=== PATIENT | male | born 2000 | race Caucasian/White ===

== ENCOUNTER 2020-08-22 18:01 | Emergency (ER) | payer OTHER, SELFPAY ==
--- NOTE | ~2020-08-22 | XR_ITS ---
EXAMINATION: XR FOREARM, LEFT XR WRIST, LEFT CLINICAL INFORMATION: Lifting injury. COMPARISON: None TECHNIQUE: AP and lateral views of the left forearm. AP, oblique, lateral, and scaphoid views of the left wrist. FINDINGS: LEFT FOREARM: No acute fracture or dislocation. No joint space narrowing or marginal osteophytes. No osseous erosion. No abnormal soft tissue calcification. No significant elbow joint effusion. LEFT WRIST: No acute fracture or dislocation. Normal carpal alignment. No joint space narrowing or marginal osteophytes. No osseous erosion. No abnormal soft tissue calcification. XR/XR forearm LT 2V IMPRESSION: LEFT FOREARM: Unremarkable examination. LEFT WRIST: Unremarkable examination.
--- NOTE | ~2020-08-22 | XR_ITS ---
EXAMINATION: XR FOREARM, LEFT XR WRIST, LEFT CLINICAL INFORMATION: Lifting injury. COMPARISON: None TECHNIQUE: AP and lateral views of the left forearm. AP, oblique, lateral, and scaphoid views of the left wrist. FINDINGS: LEFT FOREARM: No acute fracture or dislocation. No joint space narrowing or marginal osteophytes. No osseous erosion. No abnormal soft tissue calcification. No significant elbow joint effusion. LEFT WRIST: No acute fracture or dislocation. Normal carpal alignment. No joint space narrowing or marginal osteophytes. No osseous erosion. No abnormal soft tissue calcification. XR/XR wrist LT min 3V IMPRESSION: LEFT FOREARM: Unremarkable examination. LEFT WRIST: Unremarkable examination.
[2020-08-22 18:06] VITALS: BP 115/61; PULSE 60; RESP 18; TEMP 36.5; O2SAT 99; BMI 23.1
--- NOTE | 2020-08-22 18:58 | ED.EXTPRO ---
HPI - Extremity Problem General Chief complaint: Extremity Injury, Upper Stated complaint: wrist inj at work Source: patient Mode of arrival: ambulatory Limitations: no limitations History of Present Illness HPI Narrative: 20-year-old male with no significant past medical history presents with pain, swelling and redness to his left forearm and wrist after a lifting injury while at work. He states that he was lifting a stove, and his arm bent in an awkward direction. He does not report any other complaints, has full range of motion and strength to the hand. Does not describe any tingling, numbness, loss of sensation, or weakness. MD Complaint: extremity pain Onset (ago): hour(s) (Within the hour of arrival) Pain Consistency: constant Location: left Severity scale (1-10): 8 Quality: aching Relieving factors: nothing Exacerbating factors: range of motion and palpation Associated symptoms: denies other symptoms Related Data Previous Rx's Medication Instructions Recorded ibuprofen 600 mg PO TID PRN #30 tab 08/22/20 Allergies Allergy/AdvReac Type Severity Reaction Status Date / Time No Known Allergies Allergy Verified 08/22/20 18:09 Review of Systems Review of Systems: Constitutional: No Fever, No Chills ENT/Mouth: No Ear Pain, No Hoarseness, No sore throat Eyes: No Eye Pain, No Swelling, No Redness, No Foreign Body Cardiovascular: No Chest Pain, No SOB Respiratory: No Cough, No Dyspnea Gastrointestinal: No Nausea, No Vomiting, No Diarrhea, No abdominal Pain Genitourinary: No Dysuria, No Hematuria Musculoskeletal: positive left forearm pain, No Myalgias, No Joint Swelling Skin: No Skin lacerations, No rash Neuro: No Weakness, No Numbness, No Paresthesias, No Loss of Consciousness, No Dizziness, No Headache Psych: No Anxiety/Panic, No Depression Heme/Lymph: no easy bruising, no Lymphadenopathy Endocrine: No Polyuria, No Polydipsia Yes all other systems are reviewed and are negative [facility] Past Medical History Attestation statement: The following information was validated with the patient. Source: old records reviewed Medical History No known health problems Social History Social History Alcohol intake: never Smoked in Last 30 Days: No Substance Use Type: Marijuana Advance Directives: No Advance Directives Information Provided: Yes Physical Exam Vital Signs: Vital Signs: Last Vital Signs Temp 97.7 F 08/22/20 18:06 Pulse 60 08/22/20 18:06 Resp 18 08/22/20 18:06 BP 115/61 08/22/20 18:06 Pulse Ox 99 08/22/20 18:06 Body Mass Index 23.1 Appearance: Alert. Oriented X3. No acute distress. Eyes: Pupils equal, round and reactive to light. ENT: Pharynx normal. Neck: Normal inspection. Neck supple. CVS: Normal heart rate and rhythm. Pulses normal. Respiratory: No respiratory distress. Breath sounds normal. Abdomen: Soft and nontender. Skin: Skin warm and dry. Normal skin color. Normal skin turgor. Extremities: Full range of motion to all extremities, left upper extremity full range of motion, able to pronate, supinate, flex, extend, abduct and adduct upper extremity without difficulty. No tendon deficit noted to digits, brisk capillary refill and pulses equal to upper extremities. Approximately 4 cm Area of tenderness, redness and swelling on the radial aspect of the distal left forearm. Neuro: No motor deficit. No sensory deficit. Course Course Course Narrative: 20-year-old male with no significant past medical history presents with a left forearm injury while lifting a stove at work. Plan of care is for x-rays and Motrin. X-rays negative for acute findings requiring emergent intervention. Plan of care is to treat with ice, elevation and Motrin. Patient verbalized understanding of and agrees to plan of care discharge home. MDM - Extremity (Nontraumatic) MDM Narrative Medical decision making narrative: Fracture, contusion Medical Records Attestation: I reviewed the patient's medical records. Imaging Data Left wrist and forearm x-ray: Attestation: I personally reviewed and interpreted this imaging study as follows: Radiologist's impression: EXAMINATION: XR FOREARM, LEFT XR WRIST, LEFT CLINICAL INFORMATION: Lifting injury. COMPARISON: None TECHNIQUE: AP and lateral views of the left forearm. AP, oblique, lateral, and scaphoid views of the left wrist. FINDINGS: LEFT FOREARM: No acute fracture or dislocation. No joint space narrowing or marginal osteophytes. No osseous erosion. No abnormal soft tissue calcification. No significant elbow joint effusion. LEFT WRIST: No acute fracture or dislocation. Normal carpal alignment. No joint space narrowing or marginal osteophytes. No osseous erosion. No abnormal soft tissue calcification. XR/XR wrist LT min 3V IMPRESSION: LEFT FOREARM: Unremarkable examination. LEFT WRIST: Unremarkable examination. Discharge Plan Discharge Clinical Impression: Contusion Qualifiers: Encounter type: initial encounter Contusion area: forearm Laterality: left Qualified Code(s): S50.12XA - Contusion of left forearm, initial encounter Patient Disposition: Home, Self-Care Instructions: Contusion in Adults (ED) Additional Instructions: You were evaluated for injury to the left forearm sustained at work while lifting a stove. X-rays are negative for fracture, but you do have some soft tissue swelling consistent with contusion. Please use ice, elevation, and Motrin as needed for pain management. Thank you for choosing this emergency department for evaluation. Please follow-up with primary care physician as needed. Return to the emergency department for any new, concerning, or worsening symptoms. Prescriptions: New ibuprofen 600 mg tablet 600 mg PO TID PRN (Reason: pain) Qty: 30 RF: 0 Interventions: ED Discharge Assessment Last Done: 08/22/20 19:51 Discharge Date/Time: 08/22/20 19:54
[2020-08-22] MEDS: Ibuprofen 600 MG TABLET PO (19:18)
== END 2020-08-22 19:54 | disposition home or self-care (01) ==
PROVIDERS: Emergency Provider Emergency Medicine
DX: S69.92XA Unspecified injury of left wrist, hand and finger(s), initial encounter (principal); S50.12XA Contusion of left forearm, initial encounter; M79.632 Pain in left forearm; M25.532 Pain in left wrist; X50.3XXA Overexertion from repetitive movements, initial encounter; X50.1XXA Overexertion from prolonged static or awkward postures, initial encounter; Y93.9 Activity, unspecified; Y92.9 Unspecified place or not applicable; Y99.0 Civilian activity done for income or pay; Z79.899 Other long term (current) drug therapy
CPT/HCPCS: 73090; 73110; 99283; 99284

== ENCOUNTER 2021-02-11 12:08 | Emergency (ER) | payer OTHER, SELFPAY ==
[2021-02-11 12:52] VITALS: BP 129/66; PULSE 76; RESP 16; TEMP 36.9; O2SAT 96; BMI 25.1
[2021-02-11] MEDS: Diphth,Pertus(ACell),Tet Adult 0.5 ML SYRINGE IM (13:39)
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
== END 2021-02-11 14:10 | disposition home or self-care (01) ==
PROVIDERS: Emergency Provider Emergency Medicine Emergency Medical Services
DX: T22.131A Burn of first degree of right upper arm, initial encounter (principal); T31.0 Burns involving less than 10% of body surface; V18.0XXA Pedal cycle driver injured in noncollision transport accident in nontraffic accident, initial encounter; Y93.55 Activity, bike riding; Y92.410 Unspecified street and highway as the place of occurrence of the external cause; Y99.9 Unspecified external cause status
CPT/HCPCS: 16000; 90471; 90715; 99283; 99284

== ENCOUNTER 2021-09-28 14:01 | Emergency (ER) | payer OTHER, SELFPAY ==
--- NOTE | 2021-09-28 14:51 | ED_ITS ---
HPI - URI/Sore Throat General Chief Complaint: Upper Respiratory Symptoms Stated Complaint: fever like symptoms Time Seen by Provider: 09/28/21 14:50 Source: patient and prior authorization nurse Mode of arrival: ambulatory Limitations: language barrier History of Present Illness HPI Narrative: 21 yo male here with 2 days of cough, subjective fever, sore throat. No recent travel or sick contact. Patient received Pfizer vaccine x2. No difficulty breathing, chest pain, vomiting, diarrhea. Related Data Previous Rx's Medication Instructions Recorded ibuprofen 600 mg tablet 600 mg PO TID PRN #30 tab 08/22/20 bacitracin 500 unit/gram topical 1 appl TOPICAL BID 14 Days #28.4 g 02/11/21 ointment Allergies Allergy/AdvReac Type Severity Reaction Status Date / Time No Known Allergies Allergy Verified 02/11/21 12:58 Review of Systems Review of Systems: Yes all other systems are reviewed and are negative Constitutional: Constitutional: Reports no additional constitutional complaints, Denies body ache(s), Denies chills, Reports fever(s), Denies headache(s) and Denies weakness Eyes: Eyes: Reports no additional eye complaints and Denies change in vision ENT: Reports system reviewed and no additional complaints, except as documented, Denies dizziness, Denies headache(s), Denies nasal congestion, Denies nasal discharge, Denies neck pain and Reports sore throat Cardiovascular: Cardiovascular: Reports no additional cardiovascular complaints, Denies chest pain, Denies leg edema and Denies dyspnea Respiratory: Respiratory: Reports no additional respiratory complaints, Reports cough and Denies dyspnea Gastrointestinal: Gastrointestinal: Reports no additional gastrointestinal complaints, Denies abdominal pain, Denies diarrhea, Denies nausea and Denies vomiting Genitourinary: Genitourinary: Denies urinary incontinence Musculoskeletal: Musculoskeletal: Reports no additional musculoskeletal complaints, Denies back pain, Denies arthralgias, Denies joint swelling, Denies neck pain, Denies numbness and Denies tingling Integumentary/Breasts: Skin/Breast: Reports system reviewed and no additional complaints, except as docu and Denies rash Neurologic: Reports system reviewed and no additional complaints, except as documented, Denies Abnormal speech present, Denies dizziness, Denies headache(s), Denies numbness, Denies tingling and Denies weakness [facility] Past Medical History Attestation statement: The following information was validated with the patient. Source: old records reviewed and nursing notes reviewed Medical History No known health problems Social History Social History Alcohol intake: never Substance Use Type: Marijuana Advance Directives: No Advance Directives Information Provided: No Physical Exam Vital Signs: Vital Signs: Last Vital Signs Temp 98.4 F 09/28/21 14:56 Pulse 77 09/28/21 14:56 Resp 16 09/28/21 14:56 BP 127/69 09/28/21 14:56 Pulse Ox 98 09/28/21 14:56 BMI result Body Mass Index 25.8 Const: General: cooperative, healthy appearing, comfortable and no acute distress Orientation/consciousness: patient oriented x3 Limitations: no limitations HEENT: Head: Yes normal to inspection Ears: hearing grossly normal bilaterally and TM's normal bilaterally General nose exam: Normal external nose present Face and sinus: Yes normal facial exam Mouth: Normal oral and palatal mucosa present Throat: Yes posterior oropharynx normal, Yes tonsils normal and Yes uvula midline Eyes: General: appearance normal, both eyes and all related structures Pupils: Equal, round and reactive pupils present Neck: Neck: Yes normal visual inspection, Yes full ROM, Yes no lymphadenopathy and Yes no meningeal signs Chest: Chest palpation & inspection: normal inspection of the chest Resp: Effort & Inspection: normal respiratory effort Auscultation: clear to auscultation bilaterally Cardio: Rate: regular rate Rhythm: regular rhythm Peripheral pulses: Peripheral pulses 2+ throughout GI: Inspection: Yes normal to inspection Palpation (GI): Soft to palpation and nontender Auscultation: normal bowel sounds Back/Spine/Pelvis: Thoracic/Lumbar Spine: thoracic and lumbar spine normal to inspection Skin: General skin exam: no rashes or lesions noted Neuro: General: patient oriented x3, no meningeal signs, no focal motor deficits and normal sensation to monofilament Cranial nerves: Yes Equal, round and reactive pupils present Cognition (Neuro): normal cognition Speech: No Abnormal speech present Gait exam (Neuro): Normal gait present Motor exam (neuro): 5/5 motor strength present throughout Extrem: General: Yes normal to inspection Course Course Course Narrative: 21-year-old male here with 2 days of subjective fevers, sore throat and cough. Will check testing for COVID, flu and rapid strep 1550-COVID, flu and strep testing are negative. Likely viral syndrome. Patient is well-appearing. Vitals are stable. Will discharge home with supportive care. Reviewed worrisome signs symptoms of when to return to the emergency department. Comfortable discharge home. MDM - URI/Sore Throat Medical Records Attestation: I reviewed the patient's medical records. Lab Data Attestation: I reviewed the patient's lab results. Labs: Lab Results 09/28/21 09/28/21 09/28/21 Range/Units 15:13 15:13 15:13 COVID-19 (CONSTANTIN) Negative (Negative) COVID-19 Clin Com See Note Influenza Type A (RADHA) Negative (Negative) Influenza Type B (RADHA) Negative (Negative) Influenza A & B Note See Note S. pyogenes GrpA RADHA Negative (Negative) Discharge Plan Discharge Clinical Impression: Viral infection Patient Disposition: Home, Self-Care Instructions: Viral Syndrome (ED) Additional Instructions: Testing for flu, COVID and strep are negative Increase fluids, rest Take Motrin or Tylenol for pain as needed Prescriptions: No Action bacitracin 500 unit/gram ointment 1 appl topical BID 14 Days Qty: 28.4 0RF ibuprofen 600 mg tablet 600 mg PO TID PRN (Reason: pain) Qty: 30 0RF Referrals: Physician,None [Primary Care Provider] - 2 days Stand Alone Forms: Work/School Release Interventions: ED Discharge Assessment Last Done: 09/28/21 15:49 Print Language: Jamaican
[2021-09-28 14:56] VITALS: BP 127/69; PULSE 77; RESP 16; TEMP 36.9; O2SAT 98; BMI 25.8
[2021-09-28 15:30] LABS: Strep A Nucleic Acid Negative (Negative)
[2021-09-28 15:33] LABS: COVID-19 Test Negative (Negative)
[2021-09-28 15:35] LABS: IDNOW Serial# 08D9AD1C; Influenza A Negative (Negative); Influenza B2 Negative (Negative)
== END 2021-09-28 15:52 | disposition home or self-care (01) ==
PROVIDERS: Nurse Practitioner Family; Emergency Provider Emergency Medicine
DX: B34.9 Viral infection, unspecified (principal); R50.9 Fever, unspecified; R05.9 Cough, unspecified; Z20.822 Contact with and (suspected) exposure to COVID-19
CPT/HCPCS: 87502; 87635; 87651; 99283

== ENCOUNTER 2022-04-25 22:27 | Emergency (ER) | payer MEDICAID, SELFPAY ==
[2022-04-25 23:36] VITALS: BP 127/62; PULSE 66; RESP 18; TEMP 36.4; O2SAT 98; BMI 24.8
[2022-04-26 01:30] LABS: Basophils Percent Auto 0.2 % (0-2); Eosinophils Absolute Auto 0.1 X10*3/uL (0.0-0.4); Eosinophils Percent Auto 0.8 % (0-4); Hematocrit 42.8 % (42.0-52.0); Hemoglobin 14.7 g/dl (14.0-18.0); Imm Gran Abs Auto 0.05 X10*3/uL (0.00-0.03); Imm Gran Pct Auto 0.4 % (0.0-0.4); MANUAL DIFF FLAG NO; Mean Corpuscular HGB Conc 34.3 g/dl (31.0-36.0); Mean Corpuscular Hemoglobin 30.6 pg (27.0-33.0); Mean Corpuscular Volume 89.2 fL (80.0-98.0); Mean Platelet Volume 8.4 fL (9.4-12.4); Monocytes Absolute Auto 1.3 X10*3/uL (0.1-1.2); Monocytes Percent Auto 9.6 % (2-11); Neutrophils Absolute Auto 8.7 x10*3/uL (2.0-8.3); Platelet Count 280 X10*3/uL (160-400); Red Cell Distribution Width 13.1 % (11.0-16.0); White Blood Count 13.1 X10*3/uL (4.8-10.8)
[2022-04-26 01:50] LABS: Alanine Aminotransferase 41 U/L (0-40); Albumin Level 4.8 g/dL (3.5-5.0); Alkaline Phosphatase 76 U/L (39-117); Anion Gap 16 (12-20); Aspartate Amino Transferase 38 U/L (5-37); Bilirubin Total 1.2 mg/dL (0.0-1.0); Blood Urea Nitrogen 12 mg/dL (9-16); Calcium 9.8 mg/dL (8.4-10.2); Carbon Dioxide 26 mmol/L (22-29); Chloride 102 mmol/L (96-108); Creatinine Clr Calc Pharmacy 125.9; Estimated Glomerular Filt Rate > 60; Glucose Random 86 mg/dL (60-115); Potassium 3.9 mmol/L (3.3-5.1); Sodium 140 mmol/L (135-145); Total Protein 7.5 g/dL (6.5-8.0)
[2022-04-26 02:13] VITALS: BP 110/69; PULSE 61; RESP 18; TEMP 36.6; O2SAT 100
--- OUTSIDE RECORDS SUMMARY | 2022-04-26 02:24 | XMS_ITS | Continuity of Care Document ---
:2000 Author Organization [facility] Address [address] [place] [address]- Care Team Providers Name Role Phone Not on Staff, PCP Primary Care Physician Unavailable Encounter [facility] [place] [place] Date(s): 02/19/21 - 02/19/[address] [address]- Encounter Diagnosis Aspiration pneumonia (Final) - 02/19/21 Discharge Disposition: A-D/C Home Attending Physician: Ariadna Chung MD Admitting Physician: Ariadna Chung MD Referring Physician: Not on Staff, Referring MD Medications amoxicillin-clavulanate 875 mg-125 mg oral tablet 1 tablet, By Mouth, Every 12 hours, for 5 days, # 10 tablet, 0 Refills, Acute 02/24/21 14:03:00 EDT,02/19/21 14:03:00 EDT, Tablet, [facility]/pharmacy #[id number], Partial fill upon patient request if the prescription is for a schedule II opioid drug. Start Date: 02/19/21 Stop Date: 02/24/21 Status: Ordered Results Radiology Reports Exam Date Time Procedure Performing Provider Status 02/19/21 10:55 AM Chest Portable Juan Cline) Notes:(Chest Portable) Reason For Exam: Shortness of BreathRESULT: Chest Portable Chest Portable Hx of Present Illness: suspected overdose on an unknown substance. Given narcan by EMS with some effect.; Reason: Shortness of Breath; Clinical Question(s): CHF COMPARISON: None. FINDINGS: LINES AND TUBES: None. LUNGS AND PLEURA: Minimal retrocardiac opacity in the medial left lower lobe may be secondary to aspiration. Normal pulmonary vascularity. No pleural effusion. No pneumothorax. HEART, MEDIASTINUM AND DENAE: Heart is normal in size. Normal upper mediastinal and hilar contour. BONES AND SOFT TISSUES: No acute abnormality. IMPRESSION: Minimal opacity within the medial left lower lobe may be secondary to aspiration given history. WSN: [id number] Ordering Physician: Ariadna Chung Dictated By: Sergey Hidalgo MD Dictated Date/Time: 02/19/21 11:05 a Reviewed By: Sergey Hidalgo MD Signed By: Sergey Hidalgo MD Signed Date/Time: 02/19/21 11:05 am Transcribed By: NGUYEN Transcribed Date/Time: 02/19/21 11:04 am Vital Signs Most recent to oldest 1 2 3 [Reference Range]: Oxygen Saturation [94-100 %] 98 % 100 % 98 % (02/19/21 4:03 PM) (02/19/21 12:42 PM) (02/19/21 7: 56 AM) Pulse Rate [55-90 bpm] 62 bpm 97 bpm 96 bpm (02/19/21 4:03 PM) *H* *H* (02/19/21 12:42 PM) (02/19/21 7:56 AM) Blood Pressure [90-138/55-84 120/55 mm Hg 129/70 mm Hg 115 /70 mm Hg mm Hg] (02/19/21 4:03 PM) (02/19/21 12:42 PM) (02/19/21 7: 56 AM) Respiratory Rate [16-30 20 br/min 22 br/min 14 br/mi n br/min] (02/19/21 4:03 PM) (02/19/21 12:42 PM) *L* (02/19/21 7:56 AM ) Temperature [96.8-100.4 DegF] 97.6 DegF 97.5 DegF (02/19/21 4:03 PM) (02/19/21 6:55 AM) Liters per Minute 2 L/min 2 L/min 2 L/min (02/19/21 7:56 AM) (02/19/21 6:55 AM) (02/19/21 6:4 9 AM) Mode of Delivery (Oxygen) Room air Room air Nasal cannula (02/19/21 4:03 PM) (02/19/21 12:42 PM) (02/19/21 7: 56 AM) Blood pressure sites Arm, right (02/19/21 4:03 PM) Temperature Route Oral Oral (02/19/21 4:03 PM) (02/19/21 6:55 AM)
--- NOTE | 2022-04-26 02:31 | ED.GENADULT ---
HPI - General Adult General Chief complaint: Extremity Injury, Lower Stated complaint: swollen leg (bite/bruise??) Time Seen by Provider: 04/26/22 02:29 Source: patient Mode of arrival: ambulatory Limitations: no limitations History of Present Illness HPI narrative: Patient noticed small bite [place] along with surrounding erythema when he woke up since yesterday getting bigger now no known insect bite Related Data Previous Rx's Medication Instructions Recorded ibuprofen 600 mg tablet 600 mg PO TID PRN pain #30 tabs 08/22/20 bacitracin 500 unit/gram topical 1 appl topical BID 2 weeks #28.4 02/11/21 ointment grams cephalexin 500 mg capsule 500 mg PO QID 10 days #40 caps 04/26/22 doxycycline hyclate 100 mg tablet 100 mg PO BID #20 tabs 04/26/22 Allergies Allergy/AdvReac Type Severity Reaction Status Date / Time No Known Allergies Allergy Verified 04/25/22 23:36 Review of Systems Review of Systems: Yes all other systems are reviewed and are negative [facility] Past Medical History Medical History No known health problems Social History Social History Alcohol intake: current Alcohol intake frequency: a few times a month Patient Tobacco Use Status: Never used Tobacco Use of substances other than those prescribed or required for medical reasons: No Substance Use Type: Marijuana Advance Directives: No Advance Directives Information Provided: Yes Physical Exam ED Vital Signs: Vital Signs - 24 hr 04/25/22 23:36 04/26/22 02:13 Temperature 97.6 F 97.8 F Pulse Rate 66 61 Respiratory Rate 18 18 Blood Pressure 127/62 110/69 Pulse Oximetry 98 100 Oxygen Delivery Method Room Air Room Air BMI result Body Mass Index 24.8 Appearance: Alert. Oriented X3. No acute distress. ENT: Pharynx normal. Oral Mucosa moist Neck: Normal inspection. Neck supple. CVS: Normal heart rate and rhythm. Pulses normal. Respiratory: No respiratory distress. Equal air entry bilateral, no wheezing/rales/rhonchi Skin: Skin warm and dry. Normal skin color. Normal skin turgor. Extremities: No lower extremity edema. Neuro: Oriented X 3. Extrem Ankle/foot/toe images: 1. central pustule with surrounding erythema clinically insect bite with cellulitis Medical Decision Making MDM Narrative Medical decision making narrative: Patient with insect bite surrounding cellulitis partial was de roofed will give doxycycline and Keflex Lab Data Result diagrams: 04/26/22 01:24 04/26/22 01:24 Labs: Lab Results 04/26/22 04/26/22 Range/Units 01:24 01:24 WBC 13.1 H (4.8-10.8) X10*3/uL RBC 4.80 (4.60-5.80) X10*6/uL Hgb 14.7 (14.0-18.0) g/dl Hct 42.8 (42.0-52.0) % MCV 89.2 (80.0-98.0) fL MCH 30.6 (27.0-33.0) pg MCHC 34.3 (31.0-36.0) g/dl RDW 13.1 (11.0-16.0) % Plt Count 280 (160-400) X10*3/uL MPV 8.4 L (9.4-12.4) fL Immature Gran % (Auto) 0.4 (0.0-0.4) % Neut % (Auto) 66.0 (45-73) % Lymph % (Auto) 23.0 (20-40) % Clare % (Auto) 9.6 (2-11) % Eos % (Auto) 0.8 (0-4) % Baso % (Auto) 0.2 (0-2) % Lymph # (Auto) 3.0 (1.2-4.9) X10*3/uL Clare # (Auto) 1.3 H (0.1-1.2) X10*3/uL Eos # (Auto) 0.1 (0.0-0.4) X10*3/uL Baso # (Auto) 0.0 (0.0-0.2) X10*3/uL Abs Immat Gran (auto) 0.05 H (0.00-0.03) X10*3/uL Absolute Neuts (auto) 8.7 H (2.0-8.3) x10*3/uL Absolute Nucleated RBC 0.000 (0.0-0.012) X10*3/uL Nucleated RBC % (auto) 0.0 (0.0-0.2) /100WBC Sodium 140 (135-145) mmol/L Potassium 3.9 (3.3-5.1) mmol/L Chloride 102 (96-108) mmol/L Carbon Dioxide 26 (22-29) mmol/L Anion Gap 16 (12-20) BUN 12 (9-16) mg/dL Creatinine 0.89 (0.5-1.4) mg/dL Estim Creat Clear Calc 125.9 Estimated GFR > 60 Random Glucose 86 (60-115) mg/dL Calcium 9.8 (8.4-10.2) mg/dL Total Bilirubin 1.2 H (0.0-1.0) mg/dL AST 38 H (5-37) U/L ALT 41 H (0-40) U/L Alkaline Phosphatase 76 (39-117) U/L Total Protein 7.5 (6.5-8.0) g/dL Albumin 4.8 (3.5-5.0) g/dL Discharge Plan Discharge Clinical Impression: Infected insect bite Patient Disposition: Home, Self-Care Instructions: Insect Bite or Sting (ED) Additional Instructions: Take antibiotic as prescribed Report to ER if worsening of the redness or pain or swelling Prescriptions: New cephalexin 500 mg capsule 500 mg PO QID 10 Days Qty: 40 0RF doxycycline hyclate 100 mg tablet 100 mg PO BID Qty: 20 0RF No Action bacitracin 500 unit/gram ointment 1 appl topical BID 14 Days Qty: 28.4 0RF ibuprofen 600 mg tablet 600 mg PO TID PRN (Reason: pain) Qty: 30 0RF Interventions: ED Discharge Assessment Last Done: 04/26/22 03:02 Discharge Date/Time: 04/26/22 03:02
[2022-04-26] MEDS: cephALEXin 500 MG CAPSULE PO (02:59)
== END 2022-04-26 03:02 | disposition home or self-care (01) ==
PROVIDERS: Emergency Provider Internal Medicine
DX: L03.116 Cellulitis of left lower limb (principal); S80.862A Insect bite (nonvenomous), left lower leg, initial encounter; Y93.84 Activity, sleeping; Y92.032 Bedroom in apartment as the place of occurrence of the external cause; Y99.9 Unspecified external cause status
CPT/HCPCS: 36415; 80053; 85025; 99283; 99284